=== PATIENT | female | born 1945 | race Caucasian/White ===

== ENCOUNTER 2022-04-17 20:42 | Emergency (ER) | payer MEDICARE, SELFPAY ==
[2022-04-17 20:44] VITALS: BMI 33.0
--- NOTE | 2022-04-17 20:46 | ED_ITS ---
HPI - Fall General: Chief Complaint: Fall Stated Complaint: FALL Time Seen by Provider: 04/17/22 20:46 History of Present Illness: Ms Tsai is a 76-year-old lady with history of atrial fibrillation, hypertension, on anticoagulation with Eliquis who presents to the emergency department due to fall. She reports being at her baseline health the past few days and was walking on her driveway when her dog ran in front of her and she tripped falling and hitting her head on the right side. She denies loss of consciousness but did get difficulty getting up. Denies preceding chest pain, shortness of breath, dizziness, lightheadedness. She was ambulatory at scene. Reports bilateral mild knee pain just from where she landed. Overall intensity symptoms is mild. Course has persisted. Reports compliance with her medication regimen and is up-to-date on tetanus shot. No other specific changes in health, exacerbating, or alleviating factors identified. Onset (ago): minute(s) Fall from: standing Place fall occurred: street Loss of consciousness: None Prolonged down time: no Context: tripped/slipped Review of Systems General: Reports: 10 or more systems reviewed and unremarkable except in HPI and below PFSH ED PFSH: Medical History Atrial fibrillation History of esophageal dilatation Hypertension Social History Smoking and tobacco status: never smoked Physical Exam Const: COMMON NORMALS: alert GENERAL APPEARANCE: cooperative and well developed HENMT: COMMON NORMALS: normocephalic HEAD & SCALP: normocephalic THROAT: posterior oropharynx normal OTHER: Contusion with hematoma and abrasion to the right forehead region of the lateral aspect, no repairable laceration, bleeding limited to very slow mildly oozing Eye: COMMON NORMALS: conjunctivae normal CONJUNCTIVA: Yes conjunctivae nor mal SCLERA: sclerae normal Neck/C-Spine: COMMON NORMALS: supple GENERAL: Yes trachea midline Resp: COMMON NORMALS: normal respiratory effort EFFORT & INSPECTION: Yes able to speak in complete sentences Cardio: COMMON NORMALS: regular rate and regular rhythm RATE: regular rate RHYTHM: regular rhythm GI: COMMON NORMALS: Soft to palpation PALPATION: Yes Soft to palpation and No Tenderness to palpation present (GI) PERCUSSION: normal to percussion Extremity: GENERAL: Yes normal exam except as noted and No edema Neuro: COMMON NORMALS: moves all extremities SENSORIUM/ORIENTATION: Yes alert and No Orientation impaired Psych: COMMON NORMALS: mental status grossly normal and Normal thought process present THOUGHT PROCESS: Normal thought process present Course ED course: - Patient was seen and evaluated by me at bedside - Patient placed on cardiac monitors, IV access obtained - Initial evaluation notable for exam as above. Head to toe exam performed. -Patient's Tdap up-to-date - Imaging notable for no acute intracranial or calvarial injury identified on CT scanning. CT neck negative for acute fracture. - Upon serial reexamination after treatment the patient was improved - Based on patient history, evaluation, and testing as interpreted the most likely cause of the patient's condition is fall with contusion on head without repairable laceration identified - The results of ED evaluation were discussed with the patient including prescriptions and/or symptomatic cares (if applicable) including appropriate and responsible use, followup plan, and return precautions. The patient verbalized understanding and felt safe for discharge. - Patient discharged in satisfactory condition. Note: Click bubbles or prepopulated napier in note writing are used for assistance with data collection and billing and are inherently more limited than narrative and other text portions of this note. Please use narrative for additional clinical history and defer to narrative/free test for any case of contradictory information. If information appears in only free text or click bubble it danya uld be considered present or absent as reported. Please contact note administrative underwriter for clarifications of clinical information or contradictory information. MDM is a brief summary, contradictory or erroneous seeming information should be clarified and full note should be reviewed. Vital Signs: Vital signs: Vital Signs Temperature 98.1 F 04/17/22 22:38 Pulse Rate 61 04/17/22 22:38 Respiratory Rate 18 04/17/22 22:38 Blood Pressure 159/91 04/17/22 22:38 Pulse Oximetry 98 04/17/22 22:38 MDM - Fall Medical Decision Making 76-year-old lady on anticoagulation presenting due to fall with head strike. Patient tripped over her dog and no prodromal symptoms identified. No repairable lacerations identified on exam. CT is negative for acute intracranial hemorrhage or mass or CT spine injury. Satisfactory for outpatient management. Medical Records I reviewed the patient's medical records. Lab Data I reviewed the patient's lab results. Radiology Impressions Cervical Spine CT 04/17/22 20:53 IMPRESSION: No acute C-spine findings. Head CT 04/17/22 20:53 IMPRESSION: 1. Soft tissue swelling over right lateral orbital rim and right anterior roman catholic area. 2. No acute intracranial findings. Discharge Plan Discharge Patient Disposition: Home Clinical Impression: Fall, Closed head injury, Contusion of head, Multiple abrasions Condition: Stable Prescriptions: No Action Euthyrox 75 mcg Tablet 75 mcg PO DAILY 0RF metoprolol succinate 25 mg tablet extended release 24 hr 25 mg PO DAILY 0RF risedronate 35 mg Tablet See Rx Instructions .ROUTE .COMPLEX 0RF Rx Instructions: 35 mg orally EVERY SUNDAY Ocuvite Tablet 1 tab PO DAILY 0RF Centrum Silver Women 8 mg iron-400 mcg-300 mcg Tablet 1 tab PO DAILY 0RF Eliquis 5 mg Tablet 5 mg PO BID 0RF Discharge Orders: Discharge ED (Routine); Ordered 04/17/22 Ordered By: John Cohn Discharge Diet: Usual diet Discharge Activity: Increase activity as tolerated Patient Instructions: Fall Prevention for Older Adults (ED), Head Injury (ED), Contusion in Adults (ED), Abrasion (ED) Activity Restrictions/Additional Instructions: Thank you for visiting the emergency department. You were seen and evaluated for fall with head injury. No acute internal injuries were identified on imaging. You may use [id number] medications for pain, I would expect that you are going to be more sore tomorrow and then things should improve. Please follow-up with your primary care provider. Please return to the emergency department for anything that you are concerned about a feel needs emergency department evaluation Coding Level of Care Code ED Chemical Milling Processor for Naif Gracia Exam Comprehensive
[2022-04-17 20:47] VITALS: BP 167/88; PULSE 55; RESP 16; TEMP 37.2; O2SAT 96
--- NOTE | 2022-04-17 20:53 | CTR_ITS ---
PROCEDURE INFORMATION: Exam: CT Head Without Contrast Exam date and time: 04/17/2022 9:04 PM Age: 76 years old Clinical indication: Injury or trauma; Swelling (edema); Injury details: Fall with bruising to RT holiness; Additional info: Fall on eliquis with head strike TECHNIQUE: Imaging protocol: Computed tomography of the head without contrast. Radiation optimization: All CT scans at this facility use at least one of these dose optimization techniques: automated exposure control; mA and/or kV adjustment per patient size (includes targeted exams where dose is matched to clinical indication); or iterative reconstruction. COMPARISON: No relevant prior studies available. RADIATION DOSE METRICS: Total DLP (mGy-cm): 880.86 FINDINGS: Brain: Moderate calcified intracranial atherosclerotic vessel disease. Cerebral ventricles: No ventriculomegaly. Paranasal sinuses: Visualized sinuses are unremarkable. No fluid levels. Mastoid air cells: Visualized mastoid air cells are well aerated. Bones/joints: Unremarkable. No acute fracture. Soft tissues: Soft tissue swelling over right lateral orbital rim and right anterior holiness area. CT/CT head wo con* [id number] IMPRESSION: 1. Soft tissue swelling over right lateral orbital rim and right anterior holiness area. 2. No acute intracranial findings.
--- NOTE | 2022-04-17 20:53 | CTR_ITS ---
PROCEDURE INFORMATION: Exam: CT Cervical Spine Without Contrast Exam date and time: 04/17/2022 9:06 PM Age: 76 years old Clinical indication: Injury or trauma; Swelling; Patient HX: Fall with bruising to RT confucianist; Additional info: Fall with head injury TECHNIQUE: Imaging protocol: Computed tomography images of the cervical spine without contrast. Radiation optimization: All CT scans at this facility use at least one of these dose optimization techniques: automated exposure control; mA and/or kV adjustment per patient size (includes targeted exams where dose is matched to clinical indication); or iterative reconstruction. COMPARISON: CT head wo con* [id number] 04/17/2022 9:04 PM RADIATION DOSE METRICS: Total DLP (mGy-cm): 580.57 FINDINGS: Bones/joints: Moderate to severe multilevel spine degenerative changes including degenerative disc disease, spondylosis and facet degenerative changes. Discs/Spinal canal/Neural foramina: Multilevel bilateral foraminal stenosis. Lungs: Lung apices are normal. Soft tissues: Unremarkable. CT/CT cervical spin wo con* [id number] IMPRESSION: No acute C-spine findings.
[2022-04-17 22:38] VITALS: BP 159/91; PULSE 61; RESP 18; TEMP 36.7; O2SAT 98
--- NOTE | 2022-04-20 08:34 | DCPLANNER ---
Addendum entered by Annie Bueno 06/29/22 11:09: Patient had a follow up appointment scheduled with [facility] - patient did attend appointment. Addendum entered by Annie Bueno 04/23/22 09:48: Patient has a follow up appointment scheduled for Sunday, June 19, 2022 at 1:[address] Riley at [facility]. Clinic will call patient with appointment information. Original Note: quality assurance test program manager had message to schedule a follow up appointment for patient with cardiology. quality assurance test program manager sent patients information to the front office staff at [facility]. Patients information will be printed and reviewed. Clinic will call patient with appointment information.
== END 2022-04-17 22:40 | disposition home or self-care (01) ==
PROVIDERS: Emergency Provider Emergency Medicine
DX: S00.93XA Contusion of unspecified part of head, initial encounter (principal); S00.81XA Abrasion of other part of head, initial encounter; W01.0XXA Fall on same level from slipping, tripping and stumbling without subsequent striking against object, initial encounter
CPT/HCPCS: 70450; 72125; 99283

== ENCOUNTER 2022-04-21 18:11 | Emergency (ER) | payer MEDICARE, SELFPAY ==
[2022-04-21 18:45] VITALS: BP 157/88; PULSE 50; RESP 15; TEMP 36.4; O2SAT 98; BMI 32.5
--- NOTE | 2022-04-21 18:59 | W.ED.GENADLT ---
HPI - General Adult General: Chief complaint: Dizziness Stated complaint: Fall/dizzy-sent over by Time Seen by Provider: 04/21/22 18:54 History of Present Illness: Patient is a 76-year-old female history of hypothyroidism, atrial fibrillation on Eliquis, hypertension who presents emergency room with complaints of lightheadedness since 3 PM. Patient tells me she was initially seen and evaluated on Sunday night for concerns of fall. At that point time, patient negative work-up and was discharged home. However today, patient reports that she feels lightheaded around 3 PM. Patient since then, patient has had intermittent lightheadedness and unsteady gait. Patient denies any focal neurological deficit. Patient denies any associate chest pain, shortness of palpitation or lightheadedness. Denies any abdominal complaints nausea/vomiting fever/chills or urinary complaints. Onset:3pm Duration:ongoing Location:home Severity:moderate Associated symptoms: Deny chest pain, dyspnea, nausea, rash, palpitations or vomiting Review of Systems Const: Denies: fever(s) or chills Eyes: Denies: change in vision ENMT: Denies: mouth pain Card: Denies: chest pain or palpitations Resp: Denies: dyspnea or non-productive cough GI: Denies: abdominal pain, nausea, vomiting or diarrhea : Denies: dysuria Musc: Denies: extremity pain Skin/Breast: Denies: rash or new lesions Neuro: Reports: other (+light-headedness); Denies: weakness in extremities Psych: Reports: other (Normal mood) Yosvany/Lymph: Denies: easy bruising PFSH ED PFSH: Medical History Atrial fibrillation History of esophageal dilatation Hypertension Social History Smoking and tobacco status: never smoked Physical Exam Const: COMMON NORMALS: alert HENMT: COMMON NORMALS: atraumatic HEAD & SCALP: atraumatic MOUTH: moist mucous membranes not abnormal Eye: COMMON NORMALS: EOMs intact bilaterally and conjunctivae normal CONJUNCTIVA: Yes conjunctivae normal Neck/C-Spine: COMMON NORMALS: full ROM and supple Resp: COMMON NORMALS: normal respiratory effort and clear to auscultation bilaterally AUSCULTATION: clear to auscultation bilaterally Cardio: COMMON NORMALS: regular rate RATE: regular rate OTHER: 2+ radial pulses b/l GI: COMMON NORMALS: Soft to palpation and non-tender PALPATION: Yes Soft to palpation Extremity: COMMON NORMALS: full ROM Neuro: SENSORIUM/ORIENTATION: Yes alert MOTOR EXAM: No Abnormal motor strength present and Other motor observations present (no focal motor deficits) OTHER: Mental status? Awake, alert, and oriented to self, year, month, location, and situation.? Following simple axial and appendicular commands.? Has appropriate fund of knowledge, comprehension, and insight.? Able to recall and understands pertinent aspects of medical history and current treatment status.? ? Language? Speech is fluent without word-finding difficulties.? Intact naming, expression, receptionist secretary, and repetition.? ? Cranial nerves? 2,3,4,6: PERRL, EOMI with no nystagmus. 5: Intact sensation to light touch, symmetric? 7: Smile symmetrical, no facial droop.? 8: Hearing grossly intact.? 9,10: Normal palate movement.? 11: Normal strength in trapezius bilaterally 12: Tongue protrudes midline.? ? Motor examination? Normal bulk & tone. Strength as follows (R/L): Delts (5/5), Biceps (5/5), Triceps (5/5), Wrist ext (5/5), hip flexors (5/5), plantarflexors (5/5), dorsiflexors (5/5). ? Sensation? Light Touch: Grossly intact and equal in upper and lower extremities bilaterally? Romberg: Negative.? Distal joint position sense intact ? Coordination? Brywvn-ov-ezut-finger movements intact without dysmetria or past-pointing.? Rapid fingertaps: preserved amplitude without decriment.? No tremor, myoclonus or truncal ataxia.? ? Gait/stance? Steady, normal narrow base gait with appropriate arm swing and turning.? Tandem gait without hesitation or loss of balance. Psych: COMMON NORMALS: speech normal SPEECH: Yes normal speech MOOD & AFFECT: Yes euthymic mood Course Vital Signs: Vital signs: Vital Signs Temperature 97.6 F 04/21/22 18:45 Pulse Rate 59 L 04/21/22 21:40 Respiratory Rate 15 04/21/22 18:45 Blood Pressure 153/91 04/21/22 21:40 Pulse Oximetry 100 04/21/22 21:40 MDM - General Adult Medical Decision Making 76-year-old female with a history of atrial fibrillation on Eliquis, hypertension, hypothyroidism presenting to the emergency room for evaluation of lightheadedness since 3 PM. Physical exam, patient is hemodynamically stable, no focal neurological deficit. Troponin x2 within normal limit. EKG is nonischemic. UA is consistent with possible early UTI. Patient received 1 L fluid and 1 g ceftriaxone in the emergency room. On reassessment, patient denies any syncope or near syncope episodes in the ER. Telemetry without any dysrhythmia. Patient has been able to tolerate PO and ambulate in the ER without issues. Delta troponin <4. I performed shared decision-making with patient regarding admission versus discharge today, and patient prefers to be discharged. I ahve discussed given patient's risk factors that she would better off admitted to the hospital. However, patient is daughter is a nurse practitioner patient would like to go home with close follow-up with Dr. Alcaraz. I explained the risks of leaving the hospital today including lethal arrythemia, IL, strokes and even . Patient verbalizes understanding of these discussed risk and elect for the alternative of following up earlier next week for evaluation by Cardiology. I have given patient follow up with our senior case manager to be seen by our outpatient Carrdiology for outpatient evaluation of near syncope and cardiac echo. Patient aware of a call from our senior case manager to schedule for appointment(s) and verbalizes understanding of the importance of following up. Rx cephalexin BID for UTI Disposition: Discharge. Patient counseled regarding diagnostic impression, treatment plan. Patient given ED strict return precautions to return for continuation, worsening, or development of new symptoms. Instructed to f/u w/ PCP regarding symptoms today. Patient verbalized understanding. Lab Data : 04/21/22 19:08 04/21/22 19:28 Radiology Impressions Chest X-Ray 04/21/22 19:03 IMPRESSION: No acute findings. Head CT 04/21/22 20:08 IMPRESSION: No acute intracranial abnormality. Laboratory Results WBC 7.7 10^3/uL (4.0-10.0) 04/21/22 19:08 RBC 4.35 10^6/uL (4.1-5.3) 04/21/22 19:08 Hgb 13.3 g/dL (11.5-15.3) 04/21/22 19:08 Hct 42.2 % (37.0-47.0) 04/21/22 19:08 MCV 97.0 fl (81-99) 04/21/22 19:08 MCH 30.6 pg (28.0-34.0) 04/21/22 19:08 MCHC 31.5 g/dL (30.0-36.0) 04/21/22 19:08 RDW 15.3 % (12.1-15.1) H 04/21/22 19:08 Plt Count 236 10^3/cmm (130-400) 04/21/22 19:08 MPV 11.3 fL (7.4-10.4) H 04/21/22 19:08 Neut % (Auto) 62.5 % 04/21/22 19:08 Lymph % (Auto) 27.0 % 04/21/22 19:08 [place] % (Auto) 7.1 % 04/21/22 19:08 Eos % (Auto) 2.3 % 04/21/22 19:08 Baso % (Auto) 0.8 % 04/21/22 19:08 Neut # (Auto) 4.82 10^3/uL (1.8-7.7) 04/21/22 19:08 Lymph # (Auto) 2.1 10^3/uL (0.8-4.8) 04/21/22 19:08 [place] # (Auto) 0.6 10^3/uL (0.2-0.9) 04/21/22 19:08 Eos # (Auto) 0.2 10^3/uL (0.0-0.8) 04/21/22 19:08 Baso # (Auto) 0.1 10^3/uL (0.0-0.1) 04/21/22 19:08 Nucleated RBC % (auto) 0 % 04/21/22 19:08 Nucleated RBCs # 0.0 /100WBC 04/21/22 19:08 Sodium 141 mmol/L (136-145) 04/21/22 19:28 Potassium 4.5 mmol/L (3.5-5.1) 04/21/22 19:28 Chloride 104 mmol/L (98-107) 04/21/22 19:28 Carbon Dioxide 29 mmol/L (22-29) 04/21/22 19:28 Anion Gap 12.5 (5-19) 04/21/22 19:28 BUN 19 mg/dL (8-23) 04/21/22 19:28 Creatinine 0.8 mg/dL (0.5-0.9) 04/21/22 19: GFR Calculation Not Reportable 04/21/22 19: Glucose 92 mg/dL (65-115) 04/21/22 19: Calculated Osmolality 294 mOsm/kg (285-295) 04/21/22 19: Calcium 9.7 mg/dL (8.5-10.5) 04/21/22 19: Total Bilirubin 0.4 mg/dL (0.15-1.2) 04/21/22 19: AST 30 U/L (0-32) 04/21/22 19: ALT 31 U/L (0-33) 04/21/22 19:28 Alkaline Phosphatase 98 IU/L (35-105) 04/21/22 19:28 Troponin T Baseline 6 ng/L (0-10) 04/21/22 19:28 Troponin T 120 Minute 6.25 ng/L (0-10) 04/21/22 21:38 Delta Troponin T Not Reportable 04/21/22 21:38 Total Protein 7.0 g/dL (6.6-8.7) 04/21/22 19: Albumin 4.3 g/dL (3.5-5.2) 04/21/22 19: Globulin 2.7 g/dL (1.3-4.6) 04/21/22 19:28 Lipase 28 U/L (13-60) 04/21/22 19: TSH 5.90 uIU/mL (0.27-4.20) H 04/21/22 19:28 Free T4 1.37 ng/dL (0.82-1.77) 04/21/22 19:28 Urine Color Yellow (Yellow) 04/21/22:42 Urine Appearance Sl cloudy (CLEAR) A 04/21/22 19: Urine pH 7 (5-7) 04/21/22 19:42 Ur Specific [place] 1.010 (1.005-1.030) 04/21/22 19:42 Urine Protein Neg (Negative) 04/21/22 19:42 Urine Glucose (UA) Norm (Normal) 04/21/22 19:42 Urine Ketones Negative (Negative) 04/21/22 19:42 Urine Blood Neg (Negative) 04/21/22 19:42 Urine Nitrate Negative (Negative) 04/21/22 19:42 Urine Bilirubin Neg (Negative) 04/21/22 19:42 Urine Urobilinogen Norm mg/dL (Negative) 04/21/22 19:42 Ur Leukocyte Esterase 2+ (Negative) H 04/21/22 19:42 Urine RBC 0-4 /hpf (0-2) H 04/21/22 19:42 Urine WBC 40-55 /hpf (0-5) H 04/21/22 19:42 Ur Squamous Epith Cells 0-4 /hpf (0-5) H 04/21/22 19:42 Amorphous Sediment 4+ /hpf 04/21/22 19:42 Urine Bacteria 2+ /hpf (NONE) H 04/21/22 19:42 Discharge Plan Discharge Patient Disposition: Home Clinical Impression: Light headedness, Acute UTI Condition: Stable Prescriptions: New cephalexin 500 mg capsule 500 mg PO BID 7 Days Qty: 14 0RF No Action Euthyrox 75 mcg Tablet 75 mcg PO DAILY 0RF metoprolol succinate 25 mg tablet extended release 24 hr 25 mg PO DAILY 0RF risedronate 35 mg Tablet See Rx Instructions .ROUTE .COMPLEX 0RF Rx Instructions: 35 mg orally EVERY SUNDAY Ocuvite Tablet 1 tab PO DAILY 0RF Centrum Silver Women 8 mg iron-400 mcg-300 mcg Tablet 1 tab PO DAILY 0RF Eliquis 5 mg Tablet 5 mg PO BID 0RF Discharge Orders: Discharge ED (Routine); Ordered 04/21/22 Ordered By: Ricky Sawyer Discharge Diet: Advance as tolerated Discharge Activity: Increase activity as tolerated Patient Instructions: Near Syncope (ED) Activity Restrictions/Additional Instructions: Please come back to the emergency room for any more breakthrough episodes of passing out or light-headedness. Come back if any weakness in her arms, drooling, difficulty speaking, any neurological symptoms, chest pain/shortness of breath/palpitation or any new or concerning issues. Please do not swim, bathe, operate heavy machinery or drive a vehicle unattended. Coding Level of Care Code ED Solo Truck Driver for Chg Fwd Exam Comprehensive
--- NOTE | 2022-04-21 19:03 | XRR_ITS ---
PROCEDURE INFORMATION: Exam: XR Chest Exam date and time: 04/21/2022 7:21 PM Age: 76 years old Clinical indication: Other: Light- headedness, weakness; Additional info: Light-headedness TECHNIQUE: Imaging protocol: XR of the chest. Views: 1 view. COMPARISON: CT cervical spin wo con* [id number] 04/17/2022 9:06 PM FINDINGS: Lungs: Calcified granuloma noted in the left lower lung. No consolidation. Pleural spaces: Unremarkable. No pleural effusion. No pneumothorax. Heart/Mediastinum: Unremarkable. No cardiomegaly. Bones/joints: Unremarkable. XR/XR chest 1V portable [id number] IMPRESSION: No acute findings.
--- NOTE | 2022-04-21 19:03 | ECG_ITS ---
[facility] Test Date: 2022-04-21 Pat Name: Jesi Garcia Department: Room: Gender: Female Studio Operation Engineer: : [id number] Requested By: Ricky Sawyer Order Number: [id number] Milla MD: Mark Mcconnell M.D. Measurements Intervals [place] Rate: 53 P: 57 NV: 181 QRS: 63 QRSD: 81 T: 65 QT: 432 QTc: 408 Interpretive Statements SINUS BRADYCARDIA POSSIBLE LEFT ATRIAL ENLARGEMENT [-0.1mV P-WAVE IN V1/V2] No previous ECG available for comparison Electronically Signed On 04-21-2022 22:07:54 CDT by Mark Mcconnell M.D. [id number] f
[2022-04-21 19:14] LABS: Basophils # 0.1 10^3/uL (0.0-0.1); Basophils % 0.8 %; Eosinophils # 0.2 10^3/uL (0.0-0.8); Eosinophils % 2.3 %; Hematocrit 42.2 % (37.0-47.0); Hemoglobin 13.3 g/dL (11.5-15.3); Lymphocytes # 2.1 10^3/uL (0.8-4.8); Mean Corpuscular HGB Conc 31.5 g/dL (30.0-36.0); Mean Corpuscular Hemoglobin 30.6 pg (28.0-34.0); Mean Platelet Volume 11.3 fL (7.4-10.4); Monocytes # 0.6 10^3/uL (0.2-0.9); Monocytes % 7.1 %; Neutrophils # 4.82 10^3/uL (1.8-7.7); Neutrophils % 62.5 %; Nucleated Red Blood Cells % 0 %; Platelet Count 236 10^3/cmm (130-400); Red Blood Count 4.35 10^6/uL (4.1-5.3); Red Cell Distribution Width 15.3 % (12.1-15.1); White Blood Count 7.7 10^3/uL (4.0-10.0)
[2022-04-21 19:49] LABS: Alanine Aminotransferase 31 U/L (0-33); Albumin Level 4.3 g/dL (3.5-5.2); Alkaline Phosphatase 98 IU/L (35-105); Anion Gap 12.5 (5-19); Aspartate Amino Transferase 30 U/L (0-32); Blood Urea Nitrogen 19 mg/dL (8-23); Calcium 9.7 mg/dL (8.5-10.5); Carbon Dioxide 29 mmol/L (22-29); Chloride 104 mmol/L (98-107); Globulin 2.7 g/dL (1.3-4.6); Glucose 92 mg/dL (65-115); Lipase 28 U/L (13-60); Osmolality Calculated 294 mOsm/kg (285-295); Potassium 4.5 mmol/L (3.5-5.1); Sodium 141 mmol/L (136-145); Total Bilirubin 0.4 mg/dL (0.15-1.2)
[2022-04-21 19:50] LABS: Troponin(5th) Baseline 6 ng/L (0-10)
[2022-04-21 19:52] VITALS: BP 165/97; PULSE 54; O2SAT 98
[2022-04-21 20:06] LABS: Add Urine Microscopic? YES; Bilirubin Urine Neg (Negative); Blood Urine Neg (Negative); Glucose Urine UA Norm (Normal); Ketones Urine Negative (Negative); Leukocyte Esterase Urine 2+ (Negative); Nitrate Urine Negative (Negative); Protein Urine Neg (Negative); RBC Urine 0-4 /hpf (0-2); Urine Color Yellow (Yellow); Urobilinogen Urine Norm (Negative); WBC Urine 40-55 /hpf (0-5); pH Urine 7 (5-7)
[2022-04-21 20:07] LABS: Add Urine Culture? Yes; Amorphous Sediment Urine 4+ /hpf; Bacteria Urine 2+ /hpf; Squamous Epithelial Cell Urine 0-4 /hpf (0-5)
--- NOTE | 2022-04-21 20:08 | CTR_ITS ---
PROCEDURE INFORMATION: Exam: CT Head Without Contrast Exam date and time: 04/21/2022 8:29 PM Age: 76 years old Clinical indication: Dizziness and other: General weakness; Patient HX: Patient sustained a fall on 04/17/2022 sustaining blow to head. Patient presents today feeling lightheaded and having general weakness. ; Additional info: Light-headedness TECHNIQUE: Imaging protocol: Computed tomography of the head without contrast. Radiation optimization: All CT scans at this facility use at least one of these dose optimization techniques: automated exposure control; mA and/or kV adjustment per patient size (includes targeted exams where dose is matched to clinical indication); or iterative reconstruction. COMPARISON: CT head wo con* [id number] 04/17/2022 9:04 PM RADIATION DOSE METRICS: Total DLP (mGy-cm): 869.93 FINDINGS: Brain: No hemorrhage. No edema. Moderate diffuse cerebral atrophy. No significant white matter disease. No mass effect. Cerebral ventricles: No ventriculomegaly. Paranasal sinuses: Visualized sinuses are unremarkable. No fluid levels. Mastoid air cells: Visualized mastoid air cells are well aerated. Bones/joints: Unremarkable. No acute fracture. Soft tissues: Unremarkable. CT/CT head wo con* [id number] IMPRESSION: No acute intracranial abnormality.
[2022-04-21 20:31] VITALS: BP 160/96
[2022-04-21] MEDS: cefTRIAXone 1,000 MG in sodium chloride 0.9% (plus) 50 ML 100 MG IV (20:41)
[2022-04-21 20:51] VITALS: BP 159/85; BP 174/96; BP 179/95
[2022-04-21 20:56] LABS: Free T4 Free Thyroxine 1.37 ng/dL (0.82-1.77)
[2022-04-21] MEDS: sodium chloride 0.9% 1,000 ML 999 ML IV (21:16)
[2022-04-21 21:40] VITALS: BP 153/91; PULSE 59; O2SAT 100
[2022-04-21 22:01] LABS: Troponin 5 2HR 6.25 ng/L (0-10)
[2022-04-21 22:46] VITALS: BP 156/76; PULSE 61; RESP 16; O2SAT 99
--- NOTE | 2022-04-22 16:56 | DCPLANNER ---
systems integration manager had message to schedule a follow up appointment for patient with cardiology. systems integration manager had an order from previous ER visit to refer patient to cardiology. Referral was placed.
== END 2022-04-21 22:48 | disposition home or self-care (01) ==
PROVIDERS: Emergency Provider Emergency Medicine
DX: R42 Dizziness and giddiness (principal); N39.0 Urinary tract infection, site not specified; I48.91 Unspecified atrial fibrillation; I10 Essential (primary) hypertension; E03.9 Hypothyroidism, unspecified; Z79.01 Long term (current) use of anticoagulants
CPT/HCPCS: 36415; 70450; 71045; 80053; 81001; 83690; 84439; 84443; 84484; 85025; 87086; 93005; 96365; 99285; J0696; J7030

== ENCOUNTER 2022-05-09 06:00 | Outpatient (RCR) | payer MEDICARE, SELFPAY | END 2022-05-25 23:59 | disposition home or self-care (01) | LOC: MPT 06:00 | PROVIDERS: Referring Provider Family Medicine; Visit Provider Family Medicine | DX: R29.6 Repeated falls (principal); R26.81 Unsteadiness on feet | CPT/HCPCS: 97110; 97161 ==

== ENCOUNTER → 2022-06-19 12:28 | Outpatient (BNVA) | payer MEDICARE, SELFPAY | PROVIDERS: PCP Family Medicine; Visit Provider Internal Medicine Cardiovascular Disease | DX: I48.91 Unspecified atrial fibrillation (principal); I10 Essential (primary) hypertension; G47.33 Obstructive sleep apnea (adult) (pediatric); I83.93 Asymptomatic varicose veins of bilateral lower extremities | CPT/HCPCS: 99204 ==

== ENCOUNTER → 2022-07-21 10:40 | Outpatient (BNVA) | payer MEDICARE, SELFPAY | PROVIDERS: PCP Family Medicine; Visit Provider Internal Medicine Critical Care Medicine | DX: G47.33 Obstructive sleep apnea (adult) (pediatric) (principal) | CPT/HCPCS: 99203; 99213 ==

== ENCOUNTER → 2022-12-12 13:05 | Outpatient (BNVA) | payer MEDICARE, SELFPAY | PROVIDERS: PCP Family Medicine; Visit Provider Internal Medicine Cardiovascular Disease | DX: I48.0 Paroxysmal atrial fibrillation (principal); Z79.01 Long term (current) use of anticoagulants; I10 Essential (primary) hypertension; G47.33 Obstructive sleep apnea (adult) (pediatric); Z99.89 Dependence on other enabling machines and devices; I83.93 Asymptomatic varicose veins of bilateral lower extremities | CPT/HCPCS: 99214; Q3014 ==

== ENCOUNTER → 2023-05-16 10:29 | Outpatient (BNVA) | payer MEDICARE, SELFPAY | PROVIDERS: PCP Family Medicine; Visit Provider Nurse Practitioner Family | DX: I48.91 Unspecified atrial fibrillation (principal); I10 Essential (primary) hypertension; Z79.01 Long term (current) use of anticoagulants | CPT/HCPCS: 99214 ==

== ENCOUNTER → 2024-01-10 10:52 | Outpatient (BNVA) | payer MEDICARE, SELFPAY | PROVIDERS: PCP Family Medicine; Visit Provider Nurse Practitioner Family | DX: I48.0 Paroxysmal atrial fibrillation (principal); I10 Essential (primary) hypertension; Z79.01 Long term (current) use of anticoagulants | CPT/HCPCS: 99214 ==

== ENCOUNTER → 2024-04-14 10:20 | Outpatient (BNVA) | payer MEDICARE, SELFPAY | PROVIDERS: PCP Family Medicine; Visit Provider Internal Medicine Pulmonary Disease | DX: G47.33 Obstructive sleep apnea (adult) (pediatric) (principal) | CPT/HCPCS: 99214 ==

== ENCOUNTER → 2024-06-19 14:15 | Outpatient (BNVA) | payer MEDICARE, SELFPAY | PROVIDERS: PCP Family Medicine; Visit Provider Internal Medicine Cardiovascular Disease | DX: R07.9 Chest pain, unspecified (principal) | CPT/HCPCS: 93005 ==

== ENCOUNTER → 2024-12-22 10:18 | Outpatient (BNVA) | payer MEDICARE, SELFPAY | PROVIDERS: PCP Family Medicine; Visit Provider Nurse Practitioner Family | DX: I48.0 Paroxysmal atrial fibrillation (principal); I10 Essential (primary) hypertension; I83.93 Asymptomatic varicose veins of bilateral lower extremities; G47.33 Obstructive sleep apnea (adult) (pediatric); Z79.01 Long term (current) use of anticoagulants | CPT/HCPCS: 99213 ==

== ENCOUNTER → 2025-06-29 11:06 | Outpatient (BNVA) | payer MEDICARE, SELFPAY | PROVIDERS: PCP Family Medicine; Visit Provider Internal Medicine Cardiovascular Disease | DX: I48.91 Unspecified atrial fibrillation (principal); Z79.01 Long term (current) use of anticoagulants; I10 Essential (primary) hypertension; G47.33 Obstructive sleep apnea (adult) (pediatric); I83.93 Asymptomatic varicose veins of bilateral lower extremities | CPT/HCPCS: 99214 ==